=== PATIENT | female | born 1970 | race Caucasian/White ===

== ENCOUNTER → 2017-07-06 | Outpatient (CLI) | payer MEDICAID | LOC: MHCPAIN 09:15 | DX: G89.29 Other chronic pain (principal); M47.22 Other spondylosis with radiculopathy, cervical region; F17.200 Nicotine dependence, unspecified, uncomplicated | CPT/HCPCS: G0463 ==

== ENCOUNTER → 2017-08-04 | Outpatient (CLI) | payer MEDICAID | LOC: MHCPAIN 08:15 | DX: M50.123 Cervical disc disorder at C6-C7 level with radiculopathy (principal) | CPT/HCPCS: J1100; Q9967 ==